=== PATIENT | female | born 1935 | race Caucasian/White ===

== ENCOUNTER 2018-12-25 20:28 | Inpatient (IN) | payer OTHER, MEDICARE ==
[~2018-12-25] VITALS: Ht 152.4 cm; Wt 52.2 kg
[~2018-12-25 20:28] MED LIST: AMLODIPINE BESYL5 MG PO; AZELAST NASAL137 MC1 NASAL; B-122500 MCG SUBLING; BIAXIN 500 MG500 M1 PO; BISACODYL SUPP10 MG RECTAL; CALCIUM 600 +1 EAC1 PO; CALTRATE 600 +1 EACH PO; CEFTIN 250 MG250 MG; COLACE100 MG PO; DIABETA 2.5MG2.5 MG PO; DIABETA 5MG TABL5 MG PO; FLONASE 0.05%50 MCG; FLOXIN OTI0.3 %/5 M1 OPHTHALMIC; FOLBIC RF TABL1 EACH PO; GLUCOPHAGE500 MG PO; HYDROCODON-ACE1 EAC7 PO; JANUVIA100 MG PO; LIDODERM 5%1 PATC1 TOP; ONE DAILY MULT1 EAC2 PO; SENNA PO; SODIUM CHLORIDE1 G2 PO; ZYRTEC-D TABLE1 EACH PO; [UNRECOGNIZED DRUG - OTHER]
[2018-12-25 21:43] LABS: URINE BILIRUBIN NEGATIVE (Negative); URINE BLOOD 2+ (Negative); URINE CLARITY CLEAR; URINE COLOR YELLOW; URINE GLUCOSE-RANDOM* NEGATIVE (Negative); URINE KETONES NEGATIVE (Negative); URINE LEUKOCYTES 1+ (Negative); URINE NITRITE NEGATIVE (Negative); URINE PROTEIN (DIPSTICK) 2+ (Negative); URINE SPECIFIC GRAVITY 1.015 (1.005-1.035); URINE UROBILINOGEN 0.2 E.U./dl (0.2-1.0)
[2018-12-25 21:44] VITALS: BP 168/60
[2018-12-25 22:05] LABS: BACTERIA None Seen /HPF (None Seen); CASTS None Seen /LPF (None Seen); CRYSTALS None Seen /LPF (None Seen); MUCUS None Seen strn/LPF (None Seen); SQUAMOUS None Seen /LPF (0-3); URINE RBC 3-10 Few /HPF (0-2); URINE WBC 6-15 Few /HPF (0-5)
[2018-12-25 22:45] LABS: ABSOLUTE NEUTROPHILS 2.8 thou/uL (1.4-8.2); BASOPHILS 0.5 % (0.0-2.0); EOSINOPHILS 2.5 % (0.0-3.0); HEMATOCRIT 26.7 % (37.0-47.0); HEMOGLOBIN 9.7 gm/dL (12.0-15.0); LYMPHOCYTES 28.1 % (24.0-44.0); MCH 31.5 pg (26.0-34.0); MCHC 36.2 g/dL (28.0-37.0); MCV 87.1 fL (80.0-100.0); MONOCYTES 9.1 % (1.0-8.0); PLATELET COUNT 202 thou/uL (150-400); POLYS 59.8 % (36.0-66.0); RBC 3.07 mil/uL (4.20-5.00); RDW 14.3 % (10.5-14.5); WBC 4.6 thou/uL (4.0-11.0)
[2018-12-25 22:59] LABS: ALBUMIN 3.6 g/dL (3.4-5.0); CALCIUM 8.5 mg/dL (8.5-10.1); CREATININE 0.8 mg/dL (0.6-1.0); POTASSIUM 4.2 mmol/L (3.5-5.1); TOTAL BILIRUBIN 0.5 mg/dL (<0.1-1.0); TOTAL PROTEIN 7.3 g/dL (6.4-8.2)
[2018-12-25 23:03] LABS: APTT 29.1 Seconds (24.5-32.8); PROTIME 10.1 Seconds (9.3-11.4)
[2018-12-26] MEDS ORDERED: GLYBURIDE 2.52.5 MG PO (00:01)
[2018-12-26] MEDS ORDERED: COZAAR 25 MG TA25 M2 PO (00:02)
[2018-12-26] MEDS ORDERED: NEXIUM40 MG PO (00:02)
[2018-12-26] MEDS ORDERED: OCUVITE EYE +1 EACH PO (00:03)
[2018-12-26] MEDS ORDERED: BACTRIM DS TAB1 EACH PO (00:03)
[2018-12-26 01:22] VITALS: BP 126/60
--- NOTE | 2018-12-26 01:23 | NUR ---
HAND OFF TOOL PRINTED TO 4WEST
[2018-12-26 01:38] VITALS: BP 143/66
[2018-12-26 02:00] VITALS: BP 149/55
[2018-12-26] MEDS ORDERED: CALTRATE 600 +1 EAC1 PO (02:11)
--- NOTE | 2018-12-26 05:34 | NUR ---
ASSUMED CARE OF PT AT 0145 HRS. PT IS ALERT BUT CONFUSED AND NON VERBAL. FAMILY AT BEDSIDE. ADMISSION INFORMATION WAS OBTAINED FROM FAMILY/DPOA. PT AND FAMILY WAS ORIENTED TO THE ROOM. PT DOES NOT APPEAR TO BE IN PAIN OR NAUSEATED. PT HAS A WOUND ON RIGHT HALLUX. THE NIGHT PROGRESSED, PT WAS INCONTINENT DUE TO URGENCY. PT WAS ABLE TO USE BEDPAN. HIGH FALL PRECAUTION ACTIVATED. NO OTHER S/S OF ACUTE DISTRESS AT THIS TIME WILL CONTINUE TO MONITOR.
[2018-12-26 07:28] VITALS: BP 150/65
--- NOTE | 2018-12-26 11:01 | EKG ---
[place] [address] [address] [facility] [place] [address] ELECTROCARDIOGRAM REPORT Name: MADELIN MONTIEL Room #: 453-P ADM IN M.R.#: [id number] ������������������ Admission: 12/26/18 ������������������ Attend Phys: Dangelo Paula MD Discharge: ������������������ Date of : 35 Report #: [id number] ����������������������������������������������������������������� [id number] THIS REPORT FOR: //name// [facility] ED Test Date: 2018-12-25 Test Time: 21:41:39 Pat Name: MADELIN KEMP Department: Room: [facility] Gender: F Reptile Keeper: Gregory Tolentino : 1935 Requested By: Apple Edmondson Order Number: [id number] MD: Ab Koch Measurements Intervals [place] Rate: 84 P: 15 GA: 165 QRS: 56 QRSD: 88 T: 18 QT: 358 QTc: 424 Interpretive Statements Sinus rhythm Borderline ST depression, diffuse leads No previous ECG available for comparison Electronically Signed On 12-26-2018 11:01:09 CDT by Ab Koch [email or web address] ��������������������������������������������� <ELECTRONICALLY SIGNED> ���������������������������������������� By: Ab Koch MD, [facility] ��������������������������������������������� 12/26/18 1101 2141 40 Ab Koch MD, FACC /EPI
[2018-12-26 11:48] LABS: CALCIUM 7.8 mg/dL (8.5-10.1); CREATININE 0.7 mg/dL (0.6-1.0); POTASSIUM 4.2 mmol/L (3.5-5.1)
[2018-12-26 15:28] VITALS: BP 131/52
--- NOTE | 2018-12-26 15:42 | NUR ---
ASSUMED CARE 0700. ALERT TO SELF, [place], COMMUNICATION DIFFICULT. BURUNDIAN IS SECOND LANGUAGE PER FAMILY PT UNDERSTAND AND SPEAKS [place]AN. FAMILY USED HAND MOTIONS TO COMMUNICATE. FAMILY STATED HEARING AIDES ARE LEFT AT HOME. CRITICAL SODIUM [address] MORALES WHO PLACED PATIENT ON 1500 FLUID RESTRICTION AND TO RECHECK SODIUM 6PM TODAY. NO IV FLUIDS AT THIS TIME. PT UP WITH GAIT BELT AND WALKER WITH MODERATE ASSISTANCE. UP TO CHAIR AT THIS TIME. FALL PRECAUTIONS IN PLACE. PT HAS NOT USED CALL LIGHT THAT IS WITHIN REACH. HOURLY ROUNDING IN PLACE. CONTINUE TO MONITOR.
[2018-12-26 21:40] VITALS: BP 125/46
--- NOTE | 2018-12-26 22:05 | NUR ---
ASSESSMENT COMPLETED. PT IS ALERT TO SELF AND PLACE. SHE IS VERY [place]. USES WALKER TO AMBULATE. VERY IMPULSIVE AND FORGETFUL. VOIDS PER BSC. WITH URINARY URGENCY AND SOME DRIBBLING. PULLUPS IN PLACE. PT IS AFEBRILE.R BIG TOE WITH DRSG C/D/I. GOOD PULSES TO BOTH LEGS. FALL PREC IN PLACE FOR SAFETY.ON FLUID RESTRICTION. WILL CONTINUE WITH POC TILL EOS.
[2018-12-27 04:22] LABS: CALCIUM 8.3 mg/dL (8.5-10.1); CREATININE 0.7 mg/dL (0.6-1.0); POTASSIUM 3.9 mmol/L (3.5-5.1)
[2018-12-27 07:44] VITALS: BP 125/56
--- NOTE | 2018-12-27 13:04 | NUR ---
ASSUMED CARE 0700. ALERT X3, [place], DENIES PAIN. SODIUM LEVEL IMPROVED TO 121. FAMILY VOICED CONCERN OVER WOUND TO TOE THAT PATIENT IS SEEING WOUND DOCTOR OUTPATIENT. DR MORALES NOTIFIED OF WOUND CONCERNS. UP WITH MIN ASSIST WITH GAIT BELT AND WALKER TO COMMODE, URGENCY URINATION PERFERS TO HAVE PULL UPS IN PLACE. NO BM AT THIS TIME. CURRENTLY IN [place]. INDEPENDENT WITH MEALS. FALL PRECAUTIONS IN PLACE. REINFORCE USE OF CALL LIGHT FOR ASSISTANCE. CALL LIGHT IN REACH. FAMILY AT BEDSIDE AT THIS TIME.
[2018-12-27 16:15] VITALS: BP 115/44
[2018-12-27 21:12] VITALS: BP 139/59
--- NOTE | 2018-12-28 03:47 | NUR ---
ASSUMED CARE OF PT AT 1900HRS. PT AOX3 AND LETS NEEDS KNOWN. PT IS LIME BUT CAN READ AND RESPOND IN UZBEK. PT HAS SOME STRESS INCONINANCE BUT WALKS TO THE BATHROOM IF OFFERED. NO OTHER S/S OF ACUTE DISTRESS. WILL CONTINUE TO MONITOR.
[2018-12-28 05:40] LABS: CALCIUM 8.3 mg/dL (8.5-10.1); CREATININE 0.7 mg/dL (0.6-1.0); POTASSIUM 4.5 mmol/L (3.5-5.1)
[2018-12-28 05:48] VITALS: BP 148/70
[2018-12-28 07:22] VITALS: BP 125/46
--- NOTE | 2018-12-28 09:32 | NUR ---
Assess for RD consult received. Pt admitted with UTI and hyponatremia. Also toe wound. Na has improved significantly from 114 to 126. On 1000ml fluid restriction and hopefully can liberalize restriction now. Excellent appetite. Possible wt loss around 5 lb over few weeks. Low nutrition risk.
--- NOTE | 2018-12-28 14:48 | NUR ---
ASSUMED CARE 0700. ALERT X3, SODIUM LEVEL IS TRENDING UP. DR MONTAÑO'S ROUNDED WITH ORDERS FOR METFORMIN AND PANTOPRAZOLE. WALKED WITH PT TODAY WITH WALKER AND GAIT BELT. UP WITH ASSISTANCE TO BATHROOM. FAMILY BEDSIDE. FALL PRECAUTIONS REMAIN IN PLACE WITH CALL LIGHT IN REACH.
[2018-12-28 14:52] VITALS: BP 171/60
--- NOTE | 2018-12-28 15:48 | NUR ---
PT ADMITTED RELATED TO UTI, HYPONITRIMIA, AMS. CM REVIEWED CHART AND SPOKE WITH CARE TEAM. CM MET WITH PT AND FAMILY MEMBER AT BEDSIDE THIS DAY. PT IS [place], FAMILY MEMBER ANSWERED MOST ASSESSMENT QUESTIONS. FAMILY INDICATED THAT PT LIVES IN A HOUSE WITH FAMILY SISTER AND NIECE. THEY INDICATED PT USES A FWW TO ASSIST WITH MOBILITY. CASE TEAM INDICATED THAT THEY HAD USED CHCS IN THE PAST AND THAT THEY WOULD USE THEM AGAIN IF NEEDED UPON DC. FAMILY INDICATED THEY WERE INTERESTED IN GETTING A 4WW UPON DC. [facility] CHECKED AND PT IS ABLE TO GET 4WW THROUGH INSURANCE. CM TO ORDER 4WW. FAMILY INDICATED THEY ANTICPATE PT RETURNING HOME ONCE MEDICALLY STABLE. CM TO FOLLOW INDICATED WITH DC PLANNING.
[2018-12-28 20:24] VITALS: BP 153/65
--- NOTE | 2018-12-29 04:29 | NUR ---
Alert, calm and pleasant. Chair rest, got to bathroom with a walker and standby assist; denied pain; vss, lab reviewed. Will keep monitoring.
[2018-12-29 04:40] VITALS: BP 151/114
[2018-12-29 05:51] LABS: CALCIUM 8.3 mg/dL (8.5-10.1); CREATININE 0.7 mg/dL (0.6-1.0); POTASSIUM 4.8 mmol/L (3.5-5.1)
[2018-12-29 07:46] VITALS: BP 106/52
--- NOTE | 2018-12-29 09:49 | NUR ---
Discharge Planning: patient is ready to dc today. BRANDY sent referral to [facility] and requested they put in for authorization. BRANDY will follow up with [facility].
--- NOTE | 2018-12-29 10:21 | NUR ---
WOUND CONSULT; ASSESSMENT OF THE RIGHT TOE; BONE WAS PROBED, TENDER, MACERATED SOME NON-VIABLE TISSUE IN THE WOUND. THE PATIENT IS USING AQUACEL AG CURRENTLY. THE SISTER IS THE UNDERWRITING CONSULTANT AND ADVOCATE. THE PATIENT AND SISTER PREFER TO SEE HER DOCTOR WHO HAS BEED FOLLOWING THIS FOR SOME TIME AT [facility]. THEY HAVE AN APPOINTMENT WITH THE DOCTOR AND FOR AN MRI WHICH THEY JUST NEED TO RESCHEDULE. RECOMMENDATIONS; I CLEANED THE WOUND WITH WOUND CLEANSER AND PACKED THE WOUND WITH AQUACEL AG, COVERED WITH GAUZE AND SECURED WITH TAPE. DISCUSSED WITH CHANDLER
[2018-12-29 10:56] VITALS: BP 106/52
--- NOTE | 2018-12-29 11:52 | NUR ---
ASSUMED CARE 0700. ALERT X3, [facility], COMPLAINT WITH CARES. DC HOME TODAY WITH WHEELCHAIR. IV REMOVED, DC PAPERS REVIEWED AND SIGNED. FALL PRECAUTIONS IN PLACE
--- NOTE | 2018-12-29 15:41 | NUR ---
CARE TEAM INDICATED PT IS MEDICALLY STABLE TO DC HOME THIS DAY. CM ORDERED PT A 4WW THROUGH [employer]. PT WAS TRANSPORTED HOME VIA FAMILY IN PERSONAL VEHICLE. NO OTHER CM INTERVENTION INDICATED. CASE CLOSED.
--- NOTE | 2018-12-31 09:39 | D ---
[facility] [place] [address] DISCHARGE SUMMARY Name: MADELIN MONTIEL Room #: 453-P [facility] IN M.R.#: [id number] Admission: 12/26/18 ������������������ Attend Phys: Dangelo Paula MD Discharge: 12/29/18 ������������������ Date of : 35 Report #: [id number] THIS REPORT FOR: //name// CC: Dangelo Paula FINAL DIAGNOSES: 1. Hyponatremia. 2. 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 3. Hypertension. 4. Diabetes type 2. HOSPITAL COURSE: The patient was admitted to the Emergency Room with altered mental status. Urinary tract infection was ruled out given a negative culture. 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 This medication was discontinued and she was placed on the fluid restriction. By the time of discharge, her sodium was back to 129, which was approximately at her baseline. Her mentation cleared and returned to baseline. Other home medications continued. She had no other interval complication. PHYSICAL EXAMINATION: GENERAL: On the day of discharge, she is awake and alert. VITAL SIGNS: Stable vital signs. LUNGS: Clear. HEART: Regular. ABDOMEN: Soft. Normoactive bowel sounds. EXTREMITIES: No edema. DISPOSITION: She is discharged to home. Diabetic diet, activity as tolerated and 2 liter fluid restriction per day. Resume all home medications, except no Bactrim at this time. Follow up with me in 2 days for BMP and then 1 week. 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 ��������������������������������������������� <ELECTRONICALLY SIGNED> ���������������������������������������� By: Dangelo Paula MD ��������������������������������������������� 12/31/18 0939 [id number] Dangelo Paula MD /nt
--- NOTE | 2019-01-07 13:02 | H ---
[facility] [place] [address] HISTORY AND PHYSICAL Name: MADELIN MONTIEL Room #: 453-P [facility] IN M.R.#: [id number] Admission: 12/26/18 ������������������ Attend Phys: Dangelo Paula MD Discharge: 12/29/18 ������������������ Date of : 35 Report #: [id number] THIS REPORT FOR: //name// CC: Dangelo Paula DATE OF SERVICE: 12/26/2018 HISTORY OF PRESENT ILLNESS: An 83-year-old female with confusion and weakness. This is a patient who is well known to our service and apparently has been struggling with a toe infection and is in need of an MRI and was started on Bactrim. When the family was noted that she had more confusion, generalized weakness and they were concerned because she has had a history of hyponatremia and they brought her to the Emergency Room and sure enough, her sodium level was 114. PAST MEDICAL HISTORY: Diabetes with peripheral neuropathy, essential hypertension, gastroesophageal reflux disease. She has had previous sinus surgery. MEDICATIONS: List includes metformin, glyburide, calcium carbonate, vitamin supplementation, amlodipine, sitagliptin. ALLERGIES: She has no known drug allergies. FAMILY HISTORY: Noncontributory. SOCIAL HISTORY: She does not smoke or drink. Lives with her family. She has no issues otherwise. REVIEW OF SYSTEMS: Negative for respiratory, cardiovascular, GI, , musculoskeletal and skin. NEUROLOGICAL: Per the HPI. ENDOCRINE: Her sugars have been controlled. PHYSICAL EXAMINATION: GENERAL: Shows her sitting up in bed. She has just finished eating breakfast. She is hard of hearing, so communication is difficult. The family is at the bedside. HEENT: Otherwise, negative. NECK: Supple, without thyromegaly or adenopathy. CHEST: Clear. HEART: Regular rhythm without murmur. ABDOMEN: Soft and nontender, without hepatosplenomegaly. EXTREMITIES: No cyanosis, clubbing or edema. There was a bandage over the first digit of the right foot. [facility] [address] [place] [address] HISTORY AND PHYSICAL Name: MADELIN MONTIEL Room #: 453-P [facility] IN [facility]#: [id number] Admission: 12/26/18 ������������������ Attend Phys: Dangelo Paula MD Discharge: 12/29/18 ������������������ Date of : 35 Report #: [id number] LABORATORY PARAMETERS: Show pyuria along with CT scan of the abdomen and pelvis that shows evidence of bladder wall thickening of unclear etiology. ASSESSMENT: This is an 83-year-old female with changing mental status and generalized weakness from severe hyponatremia, which may well be on the basis of Bactrim use. We did discuss excessive water intake and this is not the case. She may well also have SIADH and will await to see how holding the Bactrim does at this point. PLAN: 1. Currently from the ER is receiving normal saline, but this may be a situation where she just needs fluid restriction. 2. Diabetes. 3. Infected toe. 4. Suspected urinary tract infection with bladder wall thickening. ��������������������������������������������� <ELECTRONICALLY SIGNED> ���������������������������������������� By: Mingo Currie MD ��������������������������������������������� 01/07/19 1302 [id number] Mingo Currie MD /nt
== END 2018-12-29 15:02 | disposition home or self-care (01) | DRG 643 ==
LOC: ER 20:28 → 4W 12-26 01:07 → EROBS 12-26 01:07 → 4W 12-26 01:39 → ENTRNSPT 12-29 11:27 → EDTRNSPTSTS 12-29 11:29 → 4W 12-29 15:02
PROVIDERS: Internal Medicine; Physician Assistant; ADMIT Internal Medicine Geriatric Medicine
DX: E22.2 Syndrome of inappropriate secretion of antidiuretic hormone (principal); G93.41 Metabolic encephalopathy; E11.40 Type 2 diabetes mellitus with diabetic neuropathy, unspecified; I10 Essential (primary) hypertension; K21.9 Gastro-esophageal reflux disease without esophagitis; T37.0X5A Adverse effect of sulfonamides, initial encounter; Z79.84 Long term (current) use of oral hypoglycemic drugs; Y92.89 Other specified places as the place of occurrence of the external cause
CPT/HCPCS: 10047

== ENCOUNTER 2019-04-05 21:58 | Emergency (ER) | payer OTHER, MEDICARE ==
[~2019-04-05] VITALS: Ht 152.4 cm; Wt 49.4 kg
[~2019-04-05 21:58] MED LIST changes: +AMARYL2 MG PO; +BACTRIM DS TAB1 EACH PO; +CALTRATE 600 +1 EAC1 PO; +CLEOCIN HCL150 MG PO; +COZAAR 25 MG TA25 M1 PO; +COZAAR 25 MG TA25 M2 PO; +DOXYCYCLINE 10100 MG PO; +GLYBURIDE 2.52.5 MG PO; +METFORMIN HCL500 MG PO; +NEXIUM40 MG PO; +OCUVITE ADULT1 EAC1 PO; +OCUVITE EYE +1 EACH PO; +PROBIOTIC1 EAC1 PO; +SENNA8.6 MG PO
[2019-04-05] MEDS ORDERED: AMARYL2 MG PO (23:05)
[2019-04-05] MEDS ORDERED: CENTRUM WOMEN1 EACH PO (23:07)
[2019-04-05] MEDS ORDERED: CLEOCIN HCL150 MG PO (23:11)
[2019-04-05] MEDS ORDERED: PROBIOTIC1 EAC1 PO (23:11)
[2019-04-06 01:39] VITALS: BP 165/62
== END 2019-04-06 01:40 | disposition home or self-care (01) ==
LOC: ER 21:58
DX: S83.8X1A Sprain of other specified parts of right knee, initial encounter (principal); I10 Essential (primary) hypertension; E11.9 Type 2 diabetes mellitus without complications; K21.9 Gastro-esophageal reflux disease without esophagitis; Z88.2 Allergy status to sulfonamides; Z90.710 Acquired absence of both cervix and uterus; Z86.2 Personal history of diseases of the blood and blood-forming organs and certain disorders involving the immune mechanism; W18.39XA Other fall on same level, initial encounter; Y92.89 Other specified places as the place of occurrence of the external cause; Y93.89 Activity, other specified; Y99.8 Other external cause status